=== PATIENT | female | born 2000 | race Caucasian/White ===

== ENCOUNTER 2023-06-08 08:04 | Inpatient (IN) | payer OTHER, SELFPAY ==
[2023-06-08] MEDS ORDERED: Ondansetron PF 4 MG/2 ML Vial ONE (08:45)
[2023-06-08] MEDS ORDERED: Insulin Regular 300 UNITS/3 ML VIAL ONE (08:46)
[2023-06-08] MEDS ORDERED: INSULIN REGULAR IN 0.9 % NACL 100 UNITS/100 ML BAG ONE (08:46)
[2023-06-08 08:59] LABS: #Basophils 0.1 10x3/uL (0.0-0.2); #Monocytes 0.3 10x3/uL (0.0-1.1); #Neutrophils 7.5 10x3/uL (1.5-8.4); %Basophils 0.7 % (0.0-2.0); %Eosinophils 0.4 % (0.0-6.0); %Lymphocytes 19.6 % (18.0-47.0); %Monocytes 3.4 % (0.0-10.0); %Neutrophils 75.4 % (40.0-75.0); Hematocrit 35.7 % (34.9-44.5); Hemoglobin 11.6 g/dL (12.0-15.5); Mean Corpuscular HGB CONC 32.5 g/dL (32.0-36.0); Mean Corpuscular Hemoglobin 25.1 pg (27.0-33.0); Mean Corpuscular Volume 77.1 fl (81.6-98.3); Mean Platelet Volume 11.8 fl (7.4-10.4); Platelet Count 393 10x3/uL (150-450); RBC Distribution Width 14.6 % (11.5-14.5); Red Blood Cell (RBC) Count 4.63 10x6/uL (3.90-5.03)
[2023-06-08 09:01] LABS: Actual Bicarbonate (HCO3v) 15.6 mEq/L (22-28); Base Excess -9.4 mEq/L (-2 - +2); Calcium, Ionized (venous) 1.18 mmol/L (1.16-1.32); Chloride (VBG) 95 mmol/L (98-106); Hematocrit-VBG 38 % (36.0-47.0); Hemoglobin (Hb) 12.9 g/dL (11.7-15.5); Potassium (VBG) 4.39 mmol/L (3.70-5.30); Puncture Site Other Site; Sodium 134 mmol/L (133-146); pH (venous) 7.314 (7.32-7.43)
[2023-06-08 09:03] LABS: BHCG - Serum Negative (NEGATIVE); Pregs Control Background? CLEAR/WHITE (CLR/WHITE); Pregs Control Bar Appear? YES (CONTROL BAR)
[2023-06-08 09:06] LABS: Phosphorus 3.4 mg/dL (2.3-4.7)
[2023-06-08 09:10] LABS: ALT (SGPT) 14 U/L (8-55); AST (SGOT) 20 U/L (5-34); Albumin 4.4 g/dL (3.5-5.0); Alkaline Phosphatase 82 U/L (40-110); Anion Gap 25 mmol/L (10-20); BUN (Urea Nitrogen) 13 mg/dL (7.0-18.7); Bilirubin, Total 0.6 mg/dL (0.2-1.2); Calc. Creatinine Clearance 0 mL/min (70-130); Calcium 9.7 mg/dL (7.8-10.44); Carbon Dioxide 14 mmol/L (22-29); Chloride 95 mmol/L (98-107); Estimated GFR 71; Globulin 4.2 g/dL (2.4-3.5); Potassium 4.3 mmol/L (3.5-5.1); Protein, Total 8.6 g/dL (6.0-8.3); Sodium 130 mmol/L (136-145)
[2023-06-08 09:11] LABS: Troponin I Less than 0.010 ng/mL (< 0.028)
[2023-06-08 09:12] LABS: Magnesium 1.5 mg/dL (1.6-2.6)
[2023-06-08 09:32] LABS: Glucose 653 mg/dL (70-105)
[2023-06-08 09:33] LABS: Glucose 650 mg/dL (70-105); Lipase 4 U/L (8-78)
[2023-06-08 10:03] LABS: Bilirubin Neg (Negative); Blood, Urine 250 (Negative); Clarity Clear (Clear); Glucose, Urine (Dipstick) >=1000 mg/dL (Negative); Ketone, Urine 150 mg/dL (Negative); Leukocyte Negative (Negative); Nitrite Negative (Negative); Protein, Urine (Dipstick) Negative (Neg-Trace); Specific Gravity, Urine 1.015 (1.005-1.030); Urobilinogen Normal mg/dL (Less than 2)
[2023-06-08] MEDS ORDERED: Electrolyte Replacement Protocol 1 EACH IVPB PRN (10:04)
[2023-06-08] MEDS ORDERED: Dextrose 50% Abboject 50 ML SYRINGE SLOW IVP PRN (10:04)
[2023-06-08] MEDS ORDERED: NS 0.9% w/ 20 MEQ KCL 1,000 ML IV PRN ×2 (10:04)
[2023-06-08] MEDS ORDERED: Sodium Chloride 0.9% 1,000 ML IV PRN ×4 (10:04)
[2023-06-08] MEDS ORDERED: Dextrose 5 %-0.45 % NaCl 1,000 ML IV PRN (10:04)
[2023-06-08 10:11] LABS: Bacteria/HPF 1+ HPF (None Seen); CAUTI Indications for Culture Pelvic or flank pain; RBC/HPF 0-3 HPF (0-3); Squamous Epithelial 0-3 HPF (0-3); WBC/HPF 0-3 HPF (0-3)
[2023-06-08 10:12] LABS: Urine Culture Reflex No No
[2023-06-08 10:47] LABS: Anion Gap 19 mmol/L (10-20); BUN (Urea Nitrogen) 12 mg/dL (7.0-18.7); Calc. Creatinine Clearance 0 mL/min (70-130); Calcium 8.4 mg/dL (7.8-10.44); Carbon Dioxide 14 mmol/L (22-29); Chloride 107 mmol/L (98-107); Estimated GFR 101; Potassium 3.6 mmol/L (3.5-5.1); Sodium 136 mmol/L (136-145)
[2023-06-08 10:50] LABS: Glucose 438 mg/dL (70-105)
[2023-06-08] MEDS ORDERED: INSULIN REGULAR IN 0.9 % NACL 100 UNITS in Premix 1 BAG IVPB SCH (12:00)
[2023-06-08 12:09] VITALS: BMI 19.9
[2023-06-08] MEDS: D5 1/2 NS w/20 mEq KCL 1,000 ML IV PRN ×2 (13:07→16:49)
[2023-06-08] MEDS ORDERED: Magnesium 2 GM/50 ML(in water) 2 GM in Premix 1 BAG IVPB SCH (14:00)
[2023-06-08 14:51] LABS: Anion Gap 14 mmol/L (10-20); BUN (Urea Nitrogen) 9 mg/dL (7.0-18.7); Calc. Creatinine Clearance 104 mL/min (70-130); Calcium 8.4 mg/dL (7.8-10.44); Carbon Dioxide 16 mmol/L (22-29); Chloride 111 mmol/L (98-107); Estimated GFR 127; Glucose 205 mg/dL (70-105); Potassium 3.9 mmol/L (3.5-5.1); Sodium 137 mmol/L (136-145)
[2023-06-08 20:15] LABS: Anion Gap 14 mmol/L (10-20); BUN (Urea Nitrogen) 7 mg/dL (7.0-18.7); Calc. Creatinine Clearance 110 mL/min (70-130); Calcium 8.3 mg/dL (7.8-10.44); Carbon Dioxide 17 mmol/L (22-29); Chloride 110 mmol/L (98-107); Estimated GFR 128; Glucose 99 mg/dL (70-105); Potassium 4.1 mmol/L (3.5-5.1); Sodium 137 mmol/L (136-145)
[2023-06-08] MEDS ORDERED: Dextrose 50% Abboject 50 ML SYRINGE IVP PRN (20:45)
[2023-06-08] MEDS ORDERED: Glucagon 1 MG/ML KIT IM PRN (20:45)
[2023-06-08] MEDS ORDERED: Dextrose 5% in Water 1,000 ML IV PRN (20:45)
[2023-06-08] MEDS ORDERED: Lantus 1000 UNITS/10 ML VIAL SC SCH (21:00)
[2023-06-09] MEDS: HumaLOG 300 UNITS/3 ML VIAL SC PRN ×3 (03:29→11:40)
[2023-06-09 04:04] LABS: Anion Gap 14 mmol/L (10-20); BUN (Urea Nitrogen) 7 mg/dL (7.0-18.7); Calc. Creatinine Clearance 109 mL/min (70-130); Calcium 8.1 mg/dL (7.8-10.44); Carbon Dioxide 15 mmol/L (22-29); Chloride 109 mmol/L (98-107); Estimated GFR 128; Glucose 241 mg/dL (70-105); Magnesium 1.8 mg/dL (1.6-2.6); Potassium 4.2 mmol/L (3.5-5.1); Sodium 134 mmol/L (136-145)
[2023-06-09] MEDS ORDERED: Magnesium 2 GM/50 ML(in water) 2 GM in Premix 1 BAG IVPB SCH (06:00)
[2023-06-09 09:24] VITALS: BP 102/52; TEMP 98.6
== END 2023-06-09 12:13 | disposition home or self-care (01) | DRG 639 ==
LOC: CSHERS 08:04 → CSHIMCU 10:04
PROVIDERS: ADMIT Internal Medicine; ATTEND Internal Medicine
DX: E10.10 Type 1 diabetes mellitus with ketoacidosis without coma (principal); Z79.4 Long term (current) use of insulin
CPT/HCPCS: 36415; 36416; 71045; 80048; 80053; 81001; 82010; 82805; 83690; 83735; 84100; 84484; 84703; 85025; 93005; J1815; J2405; J3475; J3480